=== PATIENT | male | born 1995 | race Two or more races ===

== ENCOUNTER 2018-01-19 09:31 | Emergency (ER) | payer OTHER ==
[~2018-01-19] VITALS: Ht 193 cm; Wt 83.9 kg
[~2018-01-19 09:31] MED LIST: COL100 PO; NORCO1 TA2 PO; PRILOSEC20 MG; URSODIOL300 MG PO
[2018-01-19 09:39] VITALS: Ht 193 cm; Wt 83.9 kg
[2018-01-19 10:19] LABS: BASOPHIL % 0.2 % (0-2); PLATELET COUNT 196 x10^3mcL (130-400); RED CELL DISTRIBUTION WIDTH 12.7 % (11.5-14.5)
[2018-01-19 10:27] LABS: ALBUMIN 4.6 g/dL (3.4-5.0); ALKALINE PHOSPHATASE 103 U/L (46-116); ALT/SGPT 25 U/L (16-63); AST/SGOT 24 U/L (15-37); BILIRUBIN TOTAL 2.95 mg/dL (0.20-1.00); CALCIUM 9.8 mg/dL (8.5-10.1); CARBON DIOXIDE 26.8 mmol/L (21-32); CHLORIDE SERUM 101 mmol/L (98-107); GFR1 > 60 mL/min; GLUCOSE SERUM 92 mg/dL (74-106); LIPASE 121 IU/L (73-393); POTASSIUM SERUM 3.5 mmol/L (3.5-5.1); SODIUM SERUM 141 mmol/L (136-145)
[2018-01-19 10:29] LABS: TOTAL PROTEIN, SERUM 8.7 g/dL (6.4-8.2)
[2018-01-19 12:20] VITALS: BP 112/71
== END 2018-01-19 12:47 | disposition home or self-care (01) ==
LOC: ED 09:31
PROVIDERS: Emergency Medicine
DX: K29.00 Acute gastritis without bleeding (principal); Z98.890 Other specified postprocedural states
CPT/HCPCS: J1885; J2550; Q0092

== ENCOUNTER 2018-12-28 10:06 | Emergency (ER) | payer OTHER ==
[~2018-12-28] VITALS: Ht 190.5 cm; Wt 81.2 kg
[2018-12-28 10:14] VITALS: Ht 190.5 cm; Wt 81.2 kg
[2018-12-28 12:00] VITALS: BP 125/78
== END 2018-12-28 12:00 | disposition home or self-care (01) ==
LOC: ED 10:06
DX: M54.5 Low back pain (principal); R09.81 Nasal congestion

== ENCOUNTER 2019-06-30 22:36 | Emergency (ER) | payer OTHER ==
[~2019-06-30] VITALS: Ht 190.5 cm; Wt 92.1 kg
[2019-06-30 22:42] VITALS: Ht 190.5 cm; Wt 92.1 kg
[2019-07-01 02:45] LABS: BASOPHIL % 0.5 % (0-2); PLATELET COUNT 217 x10^3mcL (130-400); RED CELL DISTRIBUTION WIDTH 12.7 % (11.5-14.5)
[2019-07-01 04:52] VITALS: BP 115/66
== END 2019-07-01 04:50 | disposition home or self-care (01) ==
LOC: ED 22:36
PROVIDERS: Emergency Medicine
DX: R07.89 Other chest pain (principal); R10.9 Unspecified abdominal pain; Z87.19 Personal history of other diseases of the digestive system
CPT/HCPCS: 36415; J1885